=== PATIENT | male | born 1985 | race Caucasian/White ===

== ENCOUNTER → 2017-07-24 | Outpatient (CLI) | payer BC | LOC: COL.VAS 12:24 | DX: I08.1 Rheumatic disorders of both mitral and tricuspid valves (principal); I10 Essential (primary) hypertension; R07.9 Chest pain, unspecified ==

== ENCOUNTER 2021-05-21 19:49 | Emergency (ER) | payer BC ==
[~2021-05-21] VITALS: Ht 182.9 cm; Wt 109.1 kg
[2021-05-21 19:57] VITALS: TEMP 98.3
[2021-05-21 20:33] LABS: BASO # 0.1 (0.0-0.2); BASO % 0.8 % (0.0-2.0); EOS # 0.5 (0.0-0.7); EOS % 4.1 % (0-4.0); GRAN # 6.9 (1.4-6.5); GRAN % 60.6 % (42.2-75.2); HEMATOCRIT 42.6 % (42.0-52.0); HEMOGLOBIN 14.6 g/dl (13.5-18.0); LYMPH # 3.1 (1.2-3.4); LYMPH % 26.9 % (20.0-51.0); MEAN CELL VOLUME 86 fl (80.0-100.0); MEAN CORPUSCULAR HEMOGLOBIN 29 pg (27.0-31.0); MEAN CORPUSCULAR HGB CONC 34 g/dl (33.0-37.0); MEAN PLATELET VOLUME 9.6 fl (7.4-10.4); MONO # 0.8 (0.1-0.6); MONO % 7.2 % (1.7-9.3); PLATELET COUNT 301 K/mm3 (130-400); RED BLOOD COUNT 4.98 M/mm3 (4.20-5.60); REDCELL DISTRIBUTION WIDTH-CV 12.9 % (11.5-14.5)
[2021-05-21 20:36] LABS: ALANINE AMINOTRANSFERASE 25 U/L (4-49); ALBUMIN 4.6 gm/dL (3.5-5.0); ALKALINE PHOSPHATASE 66 U/L (50-136); ANION GAP 9 mmol/L (7-16); AST,SGOT 28 U/L (15-37); BILIRUBIN,TOTAL 0.4 mg/dL (0.0-1.0); BLOOD UREA NITROGEN 14 mg/dL (9-20); CALCIUM 9.6 mg/dL (8.4-10.2); CARBON DIOXIDE 23 mmol/L (22-30); CHLORIDE 104 mmol/L (98-107); CREATININE, serum 0.77 (0.66-1.25); GLUCOSE 100 mg/dL (74-106); SODIUM 137 mmol/L (137-145); TOTAL PROTEIN 8.1 gm/dL (6.4-8.2)
[2021-05-21 21:12] LABS: TROPONIN-I < 0.012 ng/mL (0.000-0.035)
[2021-05-21 21:45] VITALS: BP 137/98; PULSE 84
== END 2021-05-21 21:45 | disposition home or self-care (01) ==
LOC: COL.ER 19:49
PROVIDERS: Emergency Medicine
DX: R07.89 Other chest pain (principal); D72.829 Elevated white blood cell count, unspecified; I10 Essential (primary) hypertension